=== PATIENT | female | born 1970 | race Caucasian/White ===

== ENCOUNTER 2022-03-29 08:50 | Emergency (ER) | payer BC ==
[2022-03-29] MEDS ORDERED: Ondansetron PF 4 MG/2 ML Vial ONE (10:35)
[2022-03-29] MEDS ORDERED: Ketorolac Tromethamine 30 MG/ML VIAL ONE (10:35)
== END 2022-03-29 10:57 | disposition left against medical advice (07) ==
LOC: ERS 08:50 → MERGE 08:50 → ERS 10:57
DX: M54.50 Low back pain, unspecified (principal); Z53.29 Procedure and treatment not carried out because of patient's decision for other reasons; F17.210 Nicotine dependence, cigarettes, uncomplicated
CPT/HCPCS: 99283; J1885; J2405

== ENCOUNTER 2022-04-12 13:11 | Outpatient (CLI) | payer BC | END 2022-04-12 13:12 | disposition home or self-care (01) | LOC: SCSMRI 13:11 | PROVIDERS: ATTEND Nurse Practitioner Family | DX: M54.41 Lumbago with sciatica, right side (principal); M51.26 Other intervertebral disc displacement, lumbar region; M51.36 Other intervertebral disc degeneration, lumbar region | CPT/HCPCS: 72148 ==